=== PATIENT | male | born 1955 | race Caucasian/White ===

== ENCOUNTER 2024-08-28 19:30 | Emergency (ER) | payer MEDICARE, BC ==
[2024-08-28 21:59] LABS: APPEARANCE,URINE CLEAR (CLEAR); GLUCOSE,URINE NEGATIVE (NEGATIVE); OCCULT BLOOD,URINE MODERATE (NEGATIVE)
[2024-08-29 01:03] LABS: EPITHELIAL CELLS,URINE RARE
== END 2024-08-28 22:18 | disposition home or self-care (01) ==
LOC: JP.ED 19:30
DX: S20.212A Contusion of left front wall of thorax, initial encounter (principal); Z79.899 Other long term (current) drug therapy; W01.198A Fall on same level from slipping, tripping and stumbling with subsequent striking against other object, initial encounter; Y93.89 Activity, other specified
CPT/HCPCS: 71101-26-LT; 71101-LT; 81001; 81003; 99283

== ENCOUNTER 2024-08-29 06:26 | Emergency (ER) | payer MEDICARE, BC ==
[2024-08-29 06:44] LABS: PLATELET COUNT,PLT 163.0 K/uL (130-375); RED BLOOD CELL COUNT 4.73 M/uL (4.14-5.76); WHITE BLOOD CELL COUNT,WBC 6.0 K/uL (3.2-11.0)
[2024-08-29] MEDS ORDERED: Iopamidol 612 MG/ML 100 ML Bottle IV PRN (06:54)
[2024-08-29] MEDS ORDERED: Sodium Chloride 0.9% 10 ML Syringe FLUSH ONE (06:54)
[2024-08-29 06:59] LABS: BLOOD UREA NITROGEN,BUN 24.0 mg/dL (7-18); CARBON DIOXIDE,CO2 27.0 mmol/L (21-32); CHLORIDE,CL 104.0 mmol/L (100-108); CREATININE 1.4 mg/dL (0.8-1.3); EST CRCL DRUG DOSING (CG) 48.18 mL/min; ESTIMATED GFR 54.0 mL/min (>60); GLUCOSE RANDOM 97.0 mg/dL (74-106); POTASSIUM,K 3.7 mmol/L (3.6-5.2); SODIUM,NA 138.0 mmol/L (140-148)
== END 2024-08-29 08:46 | disposition home or self-care (01) ==
LOC: JP.ED 06:26
DX: S20.212A Contusion of left front wall of thorax, initial encounter (principal); Z79.899 Other long term (current) drug therapy; W01.198A Fall on same level from slipping, tripping and stumbling with subsequent striking against other object, initial encounter
CPT/HCPCS: 36415; 76770; 80048; 85027; 99284; J7030

== ENCOUNTER 2024-08-31 07:08 | Emergency (ER) | payer MEDICARE, BC ==
[2024-08-31 08:05] LABS: BASOPHILS ABSOLUTE AUTO 0.05 K/uL (0.00-0.10); BASOPHILS PERCENT AUTO 1.1 % (0.1-1.3); EOSINOPHILS ABSOLUTE AUTO 0.17 K/uL (0.00-0.40); EOSINOPHILS PERCENT AUTO 3.7 % (0.0-5.4); IMMATURE GRAN PERCENT AUTO 0.2 % (0.0-0.7); LYMPHOCYTES ABSOLUTE AUTO 0.71 K/uL (0.8-3.3); LYMPHOCYTES PERCENT AUTO 15.4 % (11.4-47.7); MONOCYTES ABSOLUTE AUTO 0.42 K/uL (0.20-0.90); MONOCYTES PERCENT AUTO 9.1 % (3.3-12.6); NEUTROPHILS ABSOLUTE AUTO 3.25 K/uL (1.0-7.6); NEUTROPHILS PERCENT AUTO 70.5 % (40.0-78.1); PLATELET COUNT,PLT 153 K/uL (130-375); RED BLOOD CELL COUNT 4.73 M/uL (4.14-5.76); WHITE BLOOD CELL COUNT,WBC 4.6 K/uL (3.2-11.0)
[2024-08-31 08:08] LABS: IMMATURE GRAN ABSOLUTE AUTO 0.01 K/uL (0.00-0.23)
[2024-08-31 08:27] LABS: A/G RATIO 1.1 (1.2-2.2); ALANINE AMINOTRANSFERASE,ALT 34 U/L (12-78); ASPARTATE AMNIOTRANSFERASE,AST 11 U/L (15-37); BILIRUBIN TOTAL 0.9 mg/dL (0.2-1.0); BLOOD UREA NITROGEN,BUN 17 mg/dL (7-18); CARBON DIOXIDE,CO2 26 mmol/L (21-32); CHLORIDE,CL 107 mmol/L (100-108); CREATININE 1.2 mg/dL (0.8-1.3); EST CRCL DRUG DOSING (CG) 58.10 mL/min; ESTIMATED GFR 65 mL/min (>60); GLUCOSE RANDOM 105 mg/dL (74-106); POTASSIUM,K 4.1 mmol/L (3.6-5.2); PROTEIN TOTAL,TP 6.7 g/dL (6.4-8.2); SODIUM,NA 141 mmol/L (140-148)
[2024-08-31] MEDS: Iopamidol 612 MG/ML 100 ML Bottle IV ONE (09:17)
[2024-08-31] MEDS: Sodium Chloride 0.9% 10 ML Syringe FLUSH ONE (09:18)
== END 2024-08-31 11:31 | disposition home or self-care (01) ==
LOC: JP.ED 07:08
DX: S22.31XA Fracture of one rib, right side, initial encounter for closed fracture (principal); S32.009A Unspecified fracture of unspecified lumbar vertebra, initial encounter for closed fracture; Z79.899 Other long term (current) drug therapy; Z90.49 Acquired absence of other specified parts of digestive tract; X58.XXXA Exposure to other specified factors, initial encounter
CPT/HCPCS: 36415; 71260; 74177; 80053; 85025; 96360; 99284; J7030; Q9967